=== PATIENT | male | born 1970 ===

== ENCOUNTER 2021-12-23 06:39 | Emergency (ER) | payer MEDICAID, OTHER ==
[2021-12-23] MEDS: LORazepam 1 MG Tab PO ONE (09:51)
== END 2021-12-23 10:00 | disposition left against medical advice (07) ==
LOC: JD.ED 06:39
DX: F41.9 Anxiety disorder, unspecified (principal); E11.9 Type 2 diabetes mellitus without complications; J44.9 Chronic obstructive pulmonary disease, unspecified; E78.00 Pure hypercholesterolemia, unspecified; I10 Essential (primary) hypertension; K21.9 Gastro-esophageal reflux disease without esophagitis; Z91.013 Allergy to seafood; Z91.048 Other nonmedicinal substance allergy status; Z88.2 Allergy status to sulfonamides; Z88.8 Allergy status to other drugs, medicaments and biological substances; Z79.899 Other long term (current) drug therapy
CPT/HCPCS: 99283; A9270